=== PATIENT | female | born 1980 | race Caucasian/White ===

== ENCOUNTER 2020-11-07 09:17 | Outpatient (REF) | payer OTHER, SELFPAY ==
[2020-11-07 10:52] LABS: Alanine Aminotransferase 14 U/L (0-31); Alkaline Phosphatase 52 U/L (39-117); Anion Gap 11 (12-20); Aspartate Amino Transferase 20 U/L (5-31); Bilirubin Total 0.5 mg/dL (0.0-1.0); Blood Urea Nitrogen 9 mg/dL (9-16); Calcium 9.5 mg/dL (8.4-10.2); Carbon Dioxide 28 mmol/L (22-29); Chloride 104 mmol/L (96-108); Estimated Glomerular Filt Rate > 60; Glucose Random 89 mg/dL (60-115); Potassium 5.1 mmol/L (3.3-5.1); Sodium 138 mmol/L (135-145); Total Protein 7.2 g/dL (6.5-8.0)
[2020-11-07 11:41] LABS: Folate 12.7 ng/mL (> or = 4.0); Vitamin B12 380 pg/mL (200-900)
== END 2020-11-07 09:18 | disposition home or self-care (01) ==
LOC: HO.LAB 09:17
PROVIDERS: PCP Internal Medicine; Visit Provider Internal Medicine
DX: D75.89 Other specified diseases of blood and blood-forming organs (principal); J04.0 Acute laryngitis; K21.9 Gastro-esophageal reflux disease without esophagitis
CPT/HCPCS: 36415; 80053; 82607; 82746

== ENCOUNTER 2021-05-25 07:32 | Outpatient (REF) | payer OTHER, SELFPAY ==
[2021-05-25 13:34] LABS: CT PCR NOT DETECTED (Not Detect.); NG PCR NOT DETECTED (Not Detect.)
[2021-05-27 08:30] LABS: HIV AB/AG Nonreactive (Nonreactive); HIV Num 1 0.06 S/CO (0.00-0.99)
[2021-05-28 16:26] LABS: Treponema pallidum Ab FTA ABS Nonreactive (Nonreactive)
== END 2021-05-25 07:33 | disposition home or self-care (01) ==
LOC: HO.LAB 07:32
PROVIDERS: PCP Internal Medicine; Visit Provider Internal Medicine
DX: Z00.00 Encounter for general adult medical examination without abnormal findings (principal); Z11.3 Encounter for screening for infections with a predominantly sexual mode of transmission; Z11.4 Encounter for screening for human immunodeficiency virus [HIV]; Z13.31 Encounter for screening for depression; D75.89 Other specified diseases of blood and blood-forming organs
CPT/HCPCS: 80053; 80061; 82607; 82746; 85025; 86780; 87389; 87491; 87591

== ENCOUNTER 2021-12-12 09:09 | Outpatient (REF) | payer BC, SELFPAY ==
--- NOTE | ~2021-12-12 | MM_ITS ---
EXAMINATION: MM SCREENING DIGITAL BREAST TOMOSYNTHESIS, BILATERAL CLINICAL INFORMATION: Screening. Asymptomatic. The lifetime risk of breast cancer based on the Tyrer-Cuzick Model is 19.1%. COMPARISON: Mammography: December 17, 2018 TECHNIQUE: Digital breast tomosynthesis is performed in both the craniocaudal and mediolateral oblique views along with computer-aided detection (CAD). Synthesized 2D images are generated from the tomosynthesis. FINDINGS: The breasts are extremely dense, which lowers the sensitivity of mammography (ACR BI-RADS breast composition Category d). There are no significant masses, abnormal calcifications, or other abnormalities. MM/MM tomosynthesis screening BI IMPRESSION: There are no significant changes from prior study. ASSESSMENT: BI-RADS 1: Negative RECOMMENDATION: Routine annual mammography screening. This patient's information was entered into a reminder system with a target due date for their next mammogram.
== END 2021-12-12 09:10 | disposition home or self-care (01) ==
LOC: HO.MAMMO 09:09
PROVIDERS: PCP Internal Medicine; Visit Provider Internal Medicine
DX: Z12.31 Encounter for screening mammogram for malignant neoplasm of breast (principal)
CPT/HCPCS: 77063; 77067

== ENCOUNTER 2022-06-16 11:24 | Day surgery (SDC) | payer OTHER, SELFPAY ==
[2022-06-16 11:39] VITALS: BMI 21.9
[2022-06-16 11:48] VITALS: BP 126/86; PULSE 79; RESP 15; TEMP 37.2; O2SAT 99
[2022-06-16 11:54] LABS: UPreg QC Valid YES; Urine Pregnancy NEGATIVE (NEGATIVE)
--- NOTE | 2022-06-16 13:07 | HO.ANESPROP2 ---
[facility] Past Medical History Medical History (Updated 06/16/22 @ 11:48 by Coby Guy RN) No pertinent past medical history Family History Family history of problems with anesthesia: No Surgical History Surgical History [place] teeth extracted History of Problems with Anesthesia: No Social History Social History Patient Tobacco Use Status: Never used Tobacco Use of substances other than those prescribed or required for medical reasons: Yes Substance Use Frequency: Occasionally Are you DNR?: No Advance Directives: No Advance Directives Information Provided: Yes Meds Allergies Allergy/AdvReac Type Severity Reaction Status Date / Time Penicillins [PCN] Allergy Unknown Verified 06/16/22 11:47 Home Medications Medication Instructions Recorded Confirmed Last Taken Type levonorgestrel-ethinyl estradiol 1 tab PO DAILY 06/11/22 06/16/22 Unknown History 0.1 mg-20 mcg tablet (Sronyx) cetirizine 10 mg tablet (Zyrtec) 10 mg PO DAILY PRN Allergy Symptoms 06/16/22 06/16/22 Unknown History Exam Exam Date and Time: June 16, 2022 1307 Height,Weight and Vital Signs: Height 5 ft 2 in Weight 54.431 kg Last Vital Signs Temp 99.0 F 06/16/22 11:48 Pulse 79 06/16/22 11:48 Resp 15 06/16/22 11:48 BP 126/86 06/16/22 11:48 Pulse Ox 99 06/16/22 11:48 O2 Del Method 06/16/22 11:48 Pertinent Lab Results Pertinent Lab Results: Laboratory Tests 06/16/22 11:40 Urine Test NEGATIVE Airway Mallampati Class: II TM Dist: >3cm Neck ROM: Full Assessment and Plan Assessment Anesthesia Assessment: Anesthesia Plan Discussed and Chart Reviewed Final Anesthetic Review Family History of Problems with Anesthesia: No History of Problems with Anesthesia: No NPO: Yes ASA Class: II Final Preanesthetic Review: No Changes in Pt Med Stat, Meds/Allgs Chart Reviewed, Consent Obtained/Reviewed and Anes Risks/Benef Reviewed Patient Risk: Low Procedure Risk: Low Anesthetic Plan Anesthetic Plan: MAC: Disposition: Standard PACU
[2022-06-16] MEDS: Lactated Ringers 1,000 ML 100 ML IVCONT (13:12)
[2022-06-16 13:33] VITALS: BP 110/66; PULSE 101; RESP 16; TEMP 36.6; O2SAT 97
--- NOTE | 2022-06-16 13:37 | P.BOP_ITS ---
Brief Operative Note Date of Service: 06/16/22 Pre-op diagnosis: Globus Post-op diagnosis: other (Minimal hiatal hernia, R/O EoE, R/O Candidiasis) Procedure: EGD with biopsies Surgeon: Bora Garcia Anesthesia: MAC Was an Shredded Filler Cutter Operator used for this Procedure?: No Estimated blood loss (mL): 2.0 Pathology: other (A. Esophagus at 25cm) Condition: stable Disposition: PACU
[2022-06-16 13:48] VITALS: BP 122/66; PULSE 91; RESP 18; TEMP 36.2; O2SAT 100
--- NOTE | 2022-06-17 00:57 | OP_ITS ---
SURGEON: Bora Garcia MD INDICATIONS: The patient presents for evaluation of globus at the level of the sternal notch. Full consent has been obtained from her for this, including risks of bleeding and perforation. PREOPERATIVE DIAGNOSIS: Globus at the level of the sternal notch. POSTOPERATIVE DIAGNOSIS: PROCEDURE PERFORMED: Esophagogastroduodenoscopy with biopsies. ESTIMATED BLOOD LOSS: COMPLICATIONS: ANESTHESIA: Monitored anesthesia care. ASSISTANTS: SPECIMENS: POSTOPERATIVE DIAGNOSES: Globus at the level of the sternal notch, small hiatal hernia, rule out eosinophilic esophagitis, rule out Kaylee esophagitis. DESCRIPTION OF PROCEDURE: The patient was placed in the left lateral decubitus position. The Olympus video gastroscope was passed in the posterior oropharynx and upper esophagus under direct vision. The scope was passed slowly to the distal esophagus. The gastroesophageal junction appeared normal at 36 cm. There was no sign of any esophagitis nor Martinez esophagus. There was a minimal hiatal hernia. The scope was advanced to the pylorus and the duodenum was cannulated to the descending portion. The duodenum including the bulb appeared normal without mass or ulceration. The scope was withdrawn back in the stomach. The gastric antrum and body appeared normal with good peristalsis. Scope was retroflexed visualizing the proximal stomach carefully which appeared normal, without any sign of mass or ulceration. The scope was straightened and withdrawn back to the esophagus. The gastroesophageal junction appeared normal at 36 cm. Proximal to this, the esophagus was carefully inspected. Between 20 and 30 cm, there were some minimal areas of whitish overlying material that may have represented Kaylee, although it did easily washed away without any underlying mucosal abnormalities. I did obtain biopsies at 25 cm to inspect for both eosinophilic esophagitis and Kaylee esophagitis. There were no sign of any proximal esophageal rings nor other mucosal abnormality. The scope was withdrawn from the patient. She tolerated the procedure well and was returned to recovery area in stable condition. IMPRESSION: 1. Rule out eosinophilic esophagitis. 2. Rule out Kaylee esophagitis. 3. Minimal hiatal hernia. PLAN: The results of the biopsy will be checked. At this point, she reports that she has actually not been having any symptoms for at least a month now. As such, she will be observed. If the biopsies are not revealing, then I would plan to see her again on a p.r.n. basis. If they happen to show evidence of candidiasis, then we could treat that as well with a course of Diflucan. If things remain stable, she will otherwise see me on a p.r.n. basis. I do not think she needs to be treated for any component of acid reflux at this time given the lack of any symptoms in that regard and the lack of any endoscopic evidence of esophagitis. MD ANGELA Lozada/SUSANNA / [id number]
== END 2022-06-16 14:20 | disposition home or self-care (01) ==
PROVIDERS: Anesthesiology; PCP Internal Medicine; Visit Provider Internal Medicine
PROC: 0DJ08ZZ Inspection of Upper Intestinal Tract, Via Natural or Artificial Opening Endoscopic (ICD-10-PCS; CPT 43235; principal; 2022-06-16 12:40)
DX: F45.8 Other somatoform disorders (principal); K44.9 Diaphragmatic hernia without obstruction or gangrene; Z79.899 Other long term (current) drug therapy; Z88.0 Allergy status to penicillin
CPT/HCPCS: 43239; 81025; 88305; 88312

== ENCOUNTER 2023-04-23 08:58 | Outpatient (REF) | payer OTHER, SELFPAY | END 2023-04-23 08:59 | disposition home or self-care (01) | LOC: HO.MAMMO 08:58 | PROVIDERS: PCP Internal Medicine; Visit Provider Internal Medicine | DX: Z12.31 Encounter for screening mammogram for malignant neoplasm of breast (principal) | CPT/HCPCS: 77063; 77067 ==

== ENCOUNTER → 2023-04-23 09:00 | Outpatient (BNV) | payer OTHER, SELFPAY | PROVIDERS: PCP Internal Medicine; Visit Provider Radiology Diagnostic Radiology | DX: Z12.31 Encounter for screening mammogram for malignant neoplasm of breast (principal) | CPT/HCPCS: 77063; 77067 ==

== ENCOUNTER 2024-05-19 15:23 | Outpatient (REF) | payer OTHER, SELFPAY ==
--- NOTE | ~2024-05-19 | MM_ITS ---
EXAMINATION: MM SCREENING DIGITAL BREAST TOMOSYNTHESIS, BILATERAL CLINICAL INFORMATION: Screening. Asymptomatic. COMPARISON: Mammography: Comparison is made with available priors TECHNIQUE: Digital breast mammography with tomosynthesis is performed in both the craniocaudal and mediolateral oblique views along with computer-aided detection (CAD). FINDINGS: The breasts are heterogeneously dense, which may obscure small masses (ACR BI-RADS breast composition Category c). There are no significant masses, abnormal calcifications, or other abnormalities. MM/MM tomosynthesis screening BI IMPRESSION: No mammographic evidence of malignancy. ASSESSMENT: BI-RADS BI-RADS 1 - Negative RECOMMENDATION: Routine annual mammography screening. 1 year F/U This examination should not preclude the clinical evaluation of a suspicious palpable abnormality. This patient's information was entered into a reminder system with a target due date for their next mammogram. Electronically signed by: Nohemi Borges DO 05/27/2024 11:49 AM ISMAEL
== END 2024-05-19 15:24 | disposition home or self-care (01) ==
LOC: HO.MAMMO 15:23
PROVIDERS: PCP Internal Medicine; Visit Provider Internal Medicine
DX: Z12.31 Encounter for screening mammogram for malignant neoplasm of breast (principal)
CPT/HCPCS: 77063; 77067

== ENCOUNTER → 2024-05-19 15:45 | Outpatient (BNV) | payer OTHER, SELFPAY | PROVIDERS: PCP Internal Medicine; Visit Provider Internal Medicine | DX: Z12.31 Encounter for screening mammogram for malignant neoplasm of breast (principal) | CPT/HCPCS: 77063; 77067 ==

== ENCOUNTER 2025-05-27 08:18 | Outpatient (REF) | payer OTHER, SELFPAY | END 2025-05-27 08:19 | disposition home or self-care (01) | LOC: HO.MAMMO 08:18 | PROVIDERS: PCP Internal Medicine; Visit Provider Internal Medicine | DX: Z12.31 Encounter for screening mammogram for malignant neoplasm of breast (principal) | CPT/HCPCS: 77063; 77067 ==

== ENCOUNTER → 2025-05-27 08:30 | Outpatient (BNV) | payer OTHER, SELFPAY | PROVIDERS: PCP Internal Medicine; Visit Provider Internal Medicine | DX: Z12.31 Encounter for screening mammogram for malignant neoplasm of breast (principal) | CPT/HCPCS: 77063; 77067 ==